=== PATIENT | male | born 1995 | race Caucasian/White ===

== ENCOUNTER 2018-09-12 19:10 | Emergency (ER) | payer SELFPAY ==
[~2018-09-12] VITALS: Ht 182.9 cm; Wt 86.0 kg
[2018-09-12] MEDS ORDERED: SODIUM CHLORIDE 0.9% 1,000 ML IV ONE (19:34)
[2018-09-12] MEDS ORDERED: LEVETIRACETAM 1000MG/100ML 100 ML IV ONE (19:45)
[2018-09-12 20:47] LABS: BASOPHILS % 0.4 % (0.0-2.0); EOSINOPHILS % 0.6 % (0.0-5.0); HEMATOCRIT. 39.8 % (42.0-52.0); HEMOGLOBIN. 13.7 g/dL (14.0-18.0); MEAN CORPUSCULAR HEMOGLOBIN 29.8 pg (28.0-32.0); MEAN CORPUSCULAR VOLUME 86.8 fL (80.0-94.0); MEAN PLATELET VOLUME 8.6 fl (7.4-10.4); PLATELET 174 x1000/uL (130-400); RED BLOOD CELL COUNT 4.59 mill/uL (4.7-6.1); RED CELL DISTRIBUTION WIDTH 13.1 % (11.6-14.6)
[2018-09-12 20:51] LABS: CHLORIDE 110 mEq/L (98-107)
[2018-09-12 20:55] LABS: ETHANOL BLOOD < 10 mg/dL
[2018-09-12 22:12] VITALS: BP 105/64
== END 2018-09-12 22:13 | disposition home or self-care (01) ==
LOC: ER 19:10
DX: G40.909 Epilepsy, unspecified, not intractable, without status epilepticus (principal); Z87.820 Personal history of traumatic brain injury; Z87.19 Personal history of other diseases of the digestive system
CPT/HCPCS: 36415; 70450; 80053; 80320; 85025; 96365; 99284; J1953; J7030; Z7610; G0480

== ENCOUNTER 2021-11-07 12:51 | Emergency (ER) | payer OTHER ==
[~2021-11-07] VITALS: Ht 170.2 cm; Wt 81.0 kg
[2021-11-07] MEDS ORDERED: KETOROLAC 60MG/2ML VIAL IM ONE (13:30)
[2021-11-07 13:42] VITALS: BP 136/87
== END 2021-11-07 14:36 | disposition home or self-care (01) ==
LOC: ER 12:51
DX: M25.512 Pain in left shoulder (principal)
CPT/HCPCS: 73030; 96372; 99283; J1885